=== PATIENT | male | born 1960 | race Two or more races ===

== ENCOUNTER 2018-05-08 06:09 | Day surgery (SDC) | payer OTHER ==
[~2018-05-08] VITALS: Ht 177.8 cm; Wt 74.8 kg
[2018-05-08 06:49] VITALS: BP 143/94
[2018-05-08 10:56] VITALS: BP 122/78
== END 2018-05-08 10:15 | disposition home or self-care (01) ==
LOC: DS 06:09 → OR 08:00 → GI 08:00 → DS 10:15
PROVIDERS: Internal Medicine Gastroenterology
PROC: 0DB68ZX Excision of Stomach, Via Natural or Artificial Opening Endoscopic, Diagnostic (ICD-10-PCS; principal; 2018-05-08 08:00)
PROC: 0DJD8ZZ Inspection of Lower Intestinal Tract, Via Natural or Artificial Opening Endoscopic (ICD-10-PCS; 2018-05-08 08:00)
DX: K21.0 Gastro-esophageal reflux disease with esophagitis (principal); K64.8 Other hemorrhoids; Z12.11 Encounter for screening for malignant neoplasm of colon
CPT/HCPCS: 43235; 45378; J1200; J1610; J2250; J2310; J3010; J3490